=== PATIENT | female | born 1965 | race Caucasian/White ===

== ENCOUNTER → 2017-01-26 | Outpatient (CLI) | payer BC | LOC: BRMIMAGING 09:05 | PROVIDERS: ATTEND Internal Medicine | DX: R05 Cough (principal) | CPT/HCPCS: 71020-PO ==

== ENCOUNTER → 2017-03-16 | Outpatient (CLI) | payer BC | LOC: BRMIMAGING 11:29 | PROVIDERS: ATTEND Internal Medicine | DX: Z12.31 Encounter for screening mammogram for malignant neoplasm of breast (principal); Z80.3 Family history of malignant neoplasm of breast | CPT/HCPCS: G0202 ==

== ENCOUNTER → 2018-03-19 | Outpatient (CLI) | payer BC | LOC: BRMIMAGING 10:42 | PROVIDERS: ATTEND Internal Medicine | DX: Z12.31 Encounter for screening mammogram for malignant neoplasm of breast (principal); Z80.3 Family history of malignant neoplasm of breast ==

== ENCOUNTER 2018-04-09 12:18 | Day surgery (SDC) | payer BC ==
--- NOTE | 2018-04-09 11:37 | PDHPUP ---
History & Physical Update H&P update statement: This history and physical update is based on an assessment of the patient which was completed after admission or registration (within 24 hours), but prior to the surgery/procedure. H&P update: H&P reviewed & patient examined, no change in patient's condition since H&P completed
--- NOTE | 2018-04-09 11:40 | POSTOPPROG ---
Post Op Note Date of Operation: 04/09/18 Surgeon: Lily Menjivar Hvac Technician: Lily Menjivar Anesthesiologist: Efrain Carty Anesthesia: GET(General Endotracheal) Pre-op Diagnosis: ventral hernia Post-op Diagnosis: same Procedure: open ventral hernia repair (no mesh) Findings: 1 cm defect Inf/Abcess present in the surg proc area at time of surgery?: No EBL: Minimal Complications: none Specimen(s): none
[2018-04-09] MEDS ORDERED: OXYMETAZOLINE 30 ML NASAL SPRAY ONE (12:22)
[2018-04-09] MEDS ORDERED: ceFAZolin 2 GM/DEXTROSE 100 ML IV ONE (12:58)
[2018-04-09] MEDS ORDERED: LR 1,000 ML IV ONE (12:59)
[2018-04-09] MEDS ORDERED: MIDAZOLAM 2 MG/2 ML VIAL IVP ONE (13:06)
--- NOTE | 2018-04-09 13:08 | PDANEPAE ---
ANE History of Present Illness ventral hernia ANE Past Medical History - Cardiovascular History Hx Hypertension: Yes Hx Arrhythmias: No Hx Chest Pain: No Hx Coronary Artery / Peripheral Vascular Disease: No Hx CHF / Valvular Disease: No Hx Palpitations: No - Pulmonary History Hx COPD: No Hx Asthma/Reactive Airway Disease: Yes Hx Recent Upper Respiratory Infection: No Hx Oxygen in Use at Home: No Hx Sleep Apnea: No Sleep Apnea Screening Result - Last Documented: Positive Pulmonary History Comment: pro-air,flovent - Neurologic History Hx Cerebrovascular Accident: No Hx Seizures: No Hx Dementia: No - Endocrine History Hx Diabetes: No Obesity: no - Renal History Hx Renal Disorders: No - Liver History Hx Hepatic Disorders: No - Neurological & Psychiatric Hx Hx Neurological and Psychiatric Disorders: Yes Neurological / Psychiatric History Comment: anxiety and depression - Cancer History Hx Cancer: No - Congenital Disorder History Hx Congenital Disorders: No - GI History GERD: no Hx Gastrointestinal Disorders: No - Other Health History Other Health History: hx endometriosis - Chronic Pain History Chronic Pain: Yes (rheumatoid arthritis) - Surgical History Prior Surgeries: 2012 left achilles tendon repair. 08/2016 nerve stim pelvic area. spinal cord stimulator implanted 2016. carpal tunnel sx left wrist 2017. knee scope 2017 ANE Review of Systems Review of systems is: negative Review of Systems: - Exercise capacity METS (RN): 4 METS ANE Patient History - Allergies Allergies/Adverse Reactions: codeine Allergy (Verified 04/08/18 17:51) Hives egg Allergy (Verified 04/08/18 17:51) Hives meperidine [From Demerol] Allergy (Verified 04/08/18 17:51) Hives shellfish derived Allergy (Verified 04/08/18 17:51) Other-Enter Comments - Home Medications Home medications: home medication list seen and reviewed Home Medications: Duloxetine HCl 04/08/18 [Last Taken Unknown] Flovent Hfa 04/08/18 [Last Taken Unknown] Furosemide 04/08/18 [Last Taken Unknown] Hydrocodone-Acetamin 10-325 mg 04/08/18 [Last Taken Unknown] Lamotrigine 04/08/18 [Last Taken Unknown] Leflunomide 04/08/18 [Last Taken Unknown] Lidoderm 04/08/18 [Last Taken Unknown] Lisinopril 04/08/18 [Last Taken Unknown] Orencia 04/08/18 [Last Taken Unknown] Oxycodone HCl 04/08/18 [Last Taken Unknown] Prednisone 04/08/18 [Last Taken Unknown] Proair Hfa 04/08/18 [Last Taken Unknown] Trazodone HCl 04/08/18 [Last Taken Unknown] Vivelle-Dot 0.05MG (*) 04/08/18 [Last Taken Unknown] Voltaren 0.1% (*) 04/08/18 [Last Taken Unknown] Zetia 04/08/18 [Last Taken Unknown] - Anes Hx Anes Hx: no prior problems - Smoking Hx Smoking Status: Never smoked - Family Anes Hx Family Hx Anesthesia Complications: none ANE Labs/Vital Signs - Vital Signs Height: 160.02 cm Weight: 78.925 kg ANE Physical Exam - Airway Neck exam: FROM Mallampati Score: Class 1 Mouth exam: normal dental/mouth exam - Pulmonary Pulmonary: no respiratory distress - Cardiovascular Cardiovascular: regular rate and rhythym - ASA Status ASA Status: III ANE Anesthesia Plan Anesthesia Plan: general endotracheal anesthesia
[2018-04-09] MEDS ORDERED: fentaNYL 100 MCG/2 ML INJ ONE ×3 (13:10→15:05)
[2018-04-09] MEDS ORDERED: PROPOFOL 200 MG/20 ML VIAL ONE (13:11)
[2018-04-09] MEDS ORDERED: ROCURONIUM 50 MG/5 ML VIAL ONE (13:12)
[2018-04-09] MEDS ORDERED: LIDOCAINE 2% 5 ML SDV ONE (13:13)
[2018-04-09] MEDS ORDERED: ONDANSETRON 4 MG/2 ML VIAL ONE (13:14)
[2018-04-09] MEDS ORDERED: KETOROLAC 30 MG/1 ML SDV ONE (13:14)
[2018-04-09] MEDS ORDERED: SUGAMMADEX SODIUM 200 MG/2 ML VIAL IVP ONE (13:14)
[2018-04-09] MEDS ORDERED: DEXAMETHASONE 4 MG/ML VIAL ONE (13:14)
[2018-04-09] MEDS ORDERED: oxyCODONE IR 5 MG TAB PO PRN (14:09)
[2018-04-09] MEDS ORDERED: LR 500 ML IV PRN (14:09)
[2018-04-09] MEDS ORDERED: NALOXONE HCL 0.4 MG/ML INJ IVP PRN (14:09)
[2018-04-09] MEDS ORDERED: HYDROmorphONE/DILAUDID 1 MG/ML INJ IVP PRN (14:09)
[2018-04-09] MEDS ORDERED: LABETALOL HCL 5 MG/ML 20 ML MDV IVP PRN (14:09)
[2018-04-09] MEDS ORDERED: BUPIVACAINE 0.25% 30 ML SDV ONE (14:09)
[2018-04-09] MEDS ORDERED: ACETAMINOPHEN 500 MG TAB PO PRN (14:09)
[2018-04-09] MEDS ORDERED: ALBUTEROL 3 ML DEYVIAL IH PRN (14:09)
[2018-04-09] MEDS ORDERED: HYDROCODONE/APAP 5/325 TAB PO PRN (14:09)
[2018-04-09] MEDS ORDERED: PROMETHAZINE HCL 25 MG/ML INJ IVP PRN (14:09)
[2018-04-09] MEDS ORDERED: ONDANSETRON 4 MG/2 ML VIAL IVP PRN (14:09)
--- NOTE | 2018-04-09 14:09 | POSTANESTH ---
Post Anesthetic Evaluation Cardiovascular Status: Normal, Stable Respiratory Status: Normal, Stable Level of Consciousness/Mental Status: Can Participate in Eval, Moderately Sleepy Pain Control: Adequate, Prn Tx Ordered Nausea/Vomiting Control: Adequate, Prn Tx Ordered Complications Possibly Related to Anesthesia: None Noted
[2018-04-09] MEDS ORDERED: LABETALOL HCL 5 MG/ML 20 ML MDV ONE (14:19)
[2018-04-09] MEDS: fentaNYL 100 MCG/2 ML INJ IVP PRN ×2 (15:06→15:12)
[2018-04-09] MEDS ORDERED: HYDROCODONE/APAP 5/325 TAB ONE (15:19)
[2018-04-09 16:50] VITALS: BP 103/68
--- NOTE | 2018-04-09 17:52 | GOP ---
[f rep st] OPERATIVE REPORT DATE OF OPERATION: SURGEON: eDepak Luna MD PIPE ROLLER: Lily Menjivar PA-C ANESTHESIOLOGIST: Dr. Frias. PREOPERATIVE DIAGNOSIS: Symptomatic ventral hernia. POSTOPERATIVE DIAGNOSIS: Symptomatic ventral hernia. PROCEDURE PERFORMED: Ventral hernia repair. FINDINGS: The patient was found to have a 1 cm defect with a fair amount of scar tissue around the e dges approximately 2 inches above the umbilicus in the midline. DESCRIPTION OF PROCEDURE: Patient was taken to the operating room where she received satisfactory ge neral endotracheal anesthesia by Dr. Carty. She was placed in a supine position, prepped and drap ed in usual sterile fashion. A transverse incision was made over the palpable mass as marked preoper atively. Dissection extended down through subcutaneous tissue and the hernia defect was eventually i dentified and defined. It was quite small. Its contents were reduced. The fascial edges were fresh ened up and cleared of any debris and then closed with 0 Surgilon [id number] sutures. Hemostasi s was assured. The wound was infiltrated with 0.5% Marcaine. Subcu was closed with 3-0 Vicryl and t he skin with 4-0 Monocryl subcuticular stitch. There were no complications. She tolerated the proce dure well, was taken to the recovery room in good condition. /[id number]/MODL
== END 2018-04-09 16:45 | disposition home or self-care (01) ==
LOC: FSGY 12:18
PROVIDERS: ATTEND Surgery
PROC: 0WQF0ZZ Repair Abdominal Wall, Open Approach (ICD-10-PCS; principal; 2018-04-09 13:45)
DX: K43.9 Ventral hernia without obstruction or gangrene (principal); M06.09 Rheumatoid arthritis without rheumatoid factor, multiple sites; R10.2 Pelvic and perineal pain; M79.7 Fibromyalgia; I10 Essential (primary) hypertension
CPT/HCPCS: J0690; J1100; J1885; J2250; J2405; J2704; J3010

== ENCOUNTER → 2018-09-25 | Outpatient (CLI) | payer BC | LOC: FIMAGING 18:10 | PROVIDERS: ATTEND Physician Assistant | DX: R22.41 Localized swelling, mass and lump, right lower limb (principal) ==

== ENCOUNTER → 2018-10-04 | Outpatient (CLI) | payer BC ==
[~2018-10-04] MED LIST: IOPAMIDOL (ISOVUE-300) 100 ML BTL ONE
== END ==
LOC: FIMAGING 16:07
PROVIDERS: ATTEND Internal Medicine Infectious Disease
DX: S82.431G Displaced oblique fracture of shaft of right fibula, subsequent encounter for closed fracture with delayed healing (principal); R60.9 Edema, unspecified; Z87.81 Personal history of (healed) traumatic fracture
CPT/HCPCS: Q9967

== ENCOUNTER → 2018-10-24 | Outpatient (CLI) | payer BC | LOC: FIMAGING 09:15 | PROVIDERS: ATTEND Orthopaedic Surgery Sports Medicine | DX: M65.871 Other synovitis and tenosynovitis, right ankle and foot (principal) ==

== ENCOUNTER → 2019-04-08 | Outpatient (CLI) | payer BC | LOC: BMCIMAGING 12:12 ==